=== PATIENT | female | born 1960 | race Caucasian/White ===

== ENCOUNTER 2017-10-05 15:31 | Emergency (ER) | payer BC ==
[2017-10-05] MEDS ORDERED: MECLIZINE 12.5 MG TAB PO (21:16)
[2017-10-05] MEDS ORDERED: ONDANSETRON (ODT) 4 MG TAB ODT (21:16)
== END 2017-10-06 00:33 | disposition left against medical advice (07) ==
LOC: FTE 10-06 00:33
DX: R51 Headache (principal); R42 Dizziness and giddiness; Z87.891 Personal history of nicotine dependence
CPT/HCPCS: 99284; Z7502